=== PATIENT | male | born 1980 | race Caucasian/White ===

== ENCOUNTER 2018-06-10 13:25 | Emergency (ER) | payer OTHER ==
[2018-06-10] MEDS: IBUPROFEN 600 MG TAB PO (14:26)
== END 2018-06-10 16:07 | disposition home or self-care (01) ==
LOC: FTE 13:25
DX: M79.89 Other specified soft tissue disorders (principal); L53.9 Erythematous condition, unspecified
CPT/HCPCS: 93971; 99284-25